=== PATIENT | female | born 1980 | race Caucasian/White ===

== ENCOUNTER → 2021-01-31 | Outpatient (REF) | payer BC ==
[~2021-01-31] MED LIST: BUPR75TA5 PO; LARI1TAB3 PO; METF-839 PO; NALT50TA4 PO
== END ==
LOC: M WUC 20:15
PROVIDERS: ATTEND Physician Assistant
DX: R35.0 Frequency of micturition (principal)

== ENCOUNTER → 2025-01-23 | Outpatient (CLI) | payer OTHER ==
[~2025-01-23] MED LIST changes: +OXYB5TAB14 PO
== END ==
LOC: M WHC 13:35
PROVIDERS: ATTEND Advanced Practice Midwife
DX: O00.91 Unspecified ectopic pregnancy with intrauterine pregnancy (principal); Z3A.01 Less than 8 weeks gestation of pregnancy

== ENCOUNTER → 2025-01-23 | Outpatient (CLI) | payer OTHER | LOC: M PLALAB 14:26 | PROVIDERS: ATTEND Advanced Practice Midwife | DX: O00.90 Unspecified ectopic pregnancy without intrauterine pregnancy (principal) ==

== ENCOUNTER → 2025-01-29 | Outpatient (CLI) | payer OTHER ==
[2025-01-29 15:50] LABS: PLATELET COUNT, AUTOMATED 243 10^3/uL (150-450)
[2025-01-29 17:27] LABS: HIV 1&2 SCREEN NEGATIVE (NEGATIVE)
[2025-01-29 17:33] LABS: HEPATITIS C VIRUS ABY INDEX < 0.02 INDEX (<0.8)
== END ==
LOC: M PLALAB 13:42
PROVIDERS: ATTEND Obstetrics & Gynecology
DX: O34.80 Maternal care for other abnormalities of pelvic organs, unspecified trimester (principal)

== ENCOUNTER → 2025-01-29 | Outpatient (REF) | payer OTHER ==
[2025-01-29 14:21] LABS: Trichomonas vaginalis (AMP) NOT DETECTED (NEGATIVE)
[2025-01-29 14:45] LABS: GC DNA AMPLIFICATION NEGATIVE (NEGATIVE)
== END ==
LOC: M SFHCWAGY 12:51
PROVIDERS: ATTEND Obstetrics & Gynecology
DX: O34.80 Maternal care for other abnormalities of pelvic organs, unspecified trimester (principal)